=== PATIENT | male | born 1945 | race Caucasian/White ===

== ENCOUNTER 2019-05-14 13:42 | Outpatient (CLI) | payer MEDICARE ==
--- NOTE | 2019-05-14 14:46 | PET ---
"PRELIMINARY REPORT" Exam: PET CT skull to mid thigh COMPARISON: Reference made to prior CT abdomen and pelvis exams from March and April 2019. No p rior PET/CT available for comparison purposes HISTORY: History of colonic malignancy, status post surgical resection TECHNIQUE: A PET/CT was performed from the skull to the mid thigh after administration of 10.3 millic uries of F-18 FDG. Evaluation was performed on a [employer] workstation. FINDINGS: NECK: No areas of hypermetabolic activity CHEST: No areas of hypermetabolic activity ABDOMEN/PELVIS: There is increased metabolic activity at the incision site of the ventral abdominal w all, presumably postoperative. There is also mild increased metabolic activity involving region of anastomosis within the right lower quadrant which may be postoperative, however residual malignancy a t this region cannot be excluded. SKELETON: Minute focus of increased metabolic activity localizes to the inferior endplate of L1, of 2 .7, mildly hypermetabolic, although too small to definitively characterize CT images used for attenuation correction show no significant abnormality. IMPRESSION: 1. Increased metabolic activity of the abdomen, likely related to patient's surgery, as discussed ab ove. 2. There is a minute focus of increased metabolic activity localizing to inferior plate of L1. This cannot be further characterized on the basis of this exam. An early metastatic focus cannot be excluded. Consider lumbar spine MRI with and without contrast for further characterization. Transcribed Date/Time: 05/14/2019 3:28 PM
== END 2019-05-14 13:43 | disposition home or self-care (01) ==
LOC: PET 13:42
PROVIDERS: ATTEND Internal Medicine Hematology & Oncology
DX: C18.3 Malignant neoplasm of hepatic flexure (principal)
CPT/HCPCS: 78815; A9552

== ENCOUNTER 2019-05-24 12:38 | Outpatient (CLI) | payer MEDICARE ==
--- NOTE | 2019-05-24 15:12 | MRI ---
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 Abnormal focus of hypermetaboli c activity at L1 vertebra found on recent PET scan. Chronic low back pain. COMPARISON: none TECHNIQUE: Multiple sequences obtained in axial and sagittal planes, pre and post IV injection of gadolinium-bas ed contrast agent. FINDINGS: There is a transitional level at the lumbosacral junction. For the purposes of this report, after rev iew of the plain radiograph of 03/08/2018, the first nonrib-bearing lumbar-type vertebra will be designated as L1, and the lumbosacral transitional level will be designated as L6. The bilaterally dy splastic, enlarged L6 transverse processes are fused with sacral ala bilaterally. There is a dextroscoliosis of the upper lumbar spine. There is especially high-grade right-sided degenerative di sc disease and facet DJD at the L4-5 and L5-6 with right neural foraminal stenosis, due to the concavity of the counter curvature. There is high-grade degenerative disc disease with disc space franco rowing, endplate irregularity, and Modic type II endplate changes, at L2-3, L3-4, L4-5, and L5-6. The L6-S1 disc is hypoplastic but otherwise normal. There is no abnormal enhancement or significant signal abnormality at the right side of the lower por tion of the L1 vertebral body to account for the finding on the PET scan. There is no abnormal enhancement or mass in the intradural, extradural, intraosseous, or perivertebral, spaces. There is h eterogeneously diffusely T1 hypointense signal throughout the bone marrow all levels in lumbar spine. This is nonspecific, but is favored to represent senescent marrow changes or red marrow conver alfredo. It is very unlikely to represent metastatic disease. No major spondylolisthesis. T12-L1:No high-grade central or neural foraminal stenosis as seen on sagittal images. L1-2:Mild left neural foraminal stenosis. No right neural foraminal stenosis. No central stenosis. Di sc space maintained. Conus medullaris terminates at this level.. L2-3:Moderate ligamentum flavum thickening. High-grade disc space narrowing. Mild to moderate bilater al neural foraminal stenosis. Mild diffuse disc bulge. Mild bilateral facet DJD. Mild to moderate central spinal canal stenosis. L3-4:Asymmetrically severe right-sided facet DJD. Mild to moderate right neural foraminal stenosis. N o significant left neural foraminal stenosis. Mild diffuse disc bulge-osteophytic bar complex. Moderate ligamentum flavum thickening. Distortion of spinal canal into trefoil configuration with eff acement of right posterior aspect of thecal sac. Moderate central spinal canal stenosis. L4-5:Asymmetrically high-grade right facet DJD. Mild to moderate left facet DJD. Mild central spinal canal stenosis. Mild to moderate right neural foraminal stenosis. No left neural foraminal stenosis. L5-6:Moderate right neural foraminal stenosis. Severe right facet DJD. Moderate left neural foraminal stenosis to a lesser degree. Moderate left facet DJD. Degenerative retrolisthesis of L5 on L6 plus central and bilateral paracentral broad-based disc-osteophyte complex. Mild to moderate central spina l canal stenosis. L6-S1: No central or neural foraminal stenosis. Hypoplastic bilateral facet joints. IMPRESSION: 1) no evidence of metastatic disease in the lumbar spine. 2) severe lumbar spondylosis, with multilevel high-grade degenerative disc disease, facet osteoarthro sis, and scoliosis. 3) lumbosacral transitional level type IIIB.
[2019-05-24] MEDS ORDERED: Magnevist 469MG/ML 20 ML VIAL ONE (17:03)
== END 2019-05-24 12:39 | disposition home or self-care (01) ==
LOC: BICMRI 12:38
PROVIDERS: ATTEND Internal Medicine Hematology & Oncology
DX: C18.3 Malignant neoplasm of hepatic flexure (principal); R93.7 Abnormal findings on diagnostic imaging of other parts of musculoskeletal system; D50.9 Iron deficiency anemia, unspecified; M47.816 Spondylosis without myelopathy or radiculopathy, lumbar region; M51.36 Other intervertebral disc degeneration, lumbar region; M41.9 Scoliosis, unspecified
CPT/HCPCS: 72158; A9579

== ENCOUNTER 2022-11-21 14:57 | Outpatient (CLI) | payer MEDICARE | END 2022-11-21 14:58 | disposition home or self-care (01) | LOC: RAD 14:57 | PROVIDERS: ATTEND Internal Medicine Hematology & Oncology | DX: C18.3 Malignant neoplasm of hepatic flexure (principal); D50.9 Iron deficiency anemia, unspecified | CPT/HCPCS: 36415; 71046; 82378 ==